=== PATIENT | female | born 1955 | race Caucasian/White ===

== ENCOUNTER 2017-09-28 09:57 | Day surgery (SDC) | payer OTHER ==
--- NOTE | 2017-09-28 08:59 | HP ---
DATE OF SURGERY: 09/28/2017 HISTORY OF PRESENT ILLNESS: The patient is a 61 year-old is not using her port. Trouble flushing at times and also some soreness, loose. As she is no longer using the port she desires removal this point. PAST MEDICAL HISTORY: Thyroid and lung nodules in the past. Prior history of breast cancer PAST SURGICAL HISTORY: Tonsillectomy, bilateral mastectomy. Foot surgery. MEDICATIONS: Victoza, hyoscyamine, Xanax, Spiriva. ALLERGIES: PENICILLIN, AVELOX, IMITREX, MORPHINE. FAMILY HISTORY: Cancer, hypertension, diabetes. SOCIAL HISTORY: No smoking. She reports social alcohol use denies abuse. REVIEW OF SYSTEMS: She is no longer using the port and desires removal. Twelve systems reviewed per admission assessment. No chest pain or palpitations other systems negative or noncontributory as above and per preadmission questionnaire. PHYSICAL EXAMINATION: GENERAL: No acute distress. HEENT: Sclerae nonicteric. NECK: No JVD. CHEST: Equal excursion, nonlabored breathing. Port site looks okay with no sign of infection. CVS: Regular rate and rhythm. ABDOMEN: Soft. EXTREMITIES: No significant edema. NEURO: Alert, moving extremities grossly symmetrically. IMPRESSION: Undesired port, has trouble flushing. She is no longer using. She desires removal. Risks and benefits explained in detail including but not limited to bleeding or infection, small risk of hematoma or seroma formation, small risk of port or catheter fracture or failure, possibility the catheter could be scarred in too bad to remove and may need to be tied off and the port itself just removed. She understands as well as general risk of anesthesia, deep venous thrombosis, pulmonary embolism, or pneumonia, risk of anesthesia or sedation but not limited to. We will proceed with removal of Port-A-Cath as an outpatient.
[~2017-09-28 09:57] MED LIST: Lactated Ringers 1,000 ML IV ONE; XYLOCAINE 1% HCL 20 ML MDV ONE
[2017-09-28] MEDS ORDERED: DIPRIVAN 200 MG/20 ML IV ONE (09:58)
[2017-09-28] MEDS ORDERED: Ketamine HCl 50 MG/ML IV ONE (09:58)
[2017-09-28] MEDS ORDERED: Lactated Ringers 1,000 ML IV ONE (10:10)
[2017-09-28] MEDS ORDERED: Lactated Ringers 1,000 ML IV SCH (10:30)
[2017-09-28] MEDS ORDERED: CLINDAMYCIN-D5W 600 MG/50 ML*** 600 MG/50 ML BAG IV SCH (12:00)
[2017-09-28 14:55] VITALS: BP 131/79; PULSE 83; O2SAT 98
--- NOTE | 2017-09-29 10:30 | OP ---
SURGERY DATE/TIME: 09/28/2017 1230 PREOPERATIVE DIAGNOSIS: Undesired Port-A-Cath. POSTOPERATIVE DIAGNOSIS: Undesired Port-A-Cath. PROCEDURE: Removal of tunnel Port-A-Cath. SURGEON: Dr. Arjun Rodriguez. ANESTHESIA: MAC, 1% lidocaine local. ESTIMATED BLOOD LOSS: Minimal. INDICATIONS: As noted above. Risks and benefits explained in detail and not limited to and consent obtained. DESCRIPTION OF PROCEDURE AND FINDINGS: The patient is taken to the operating room. MAC anesthesia introduced. After official time out and no disagreement with planned procedure, she is prepped and draped in usual sterile fashion. After official time out and no disagreement with the planned procedure, 1% lidocaine local infiltrated in field pattern around the old scar. The left chest dissection carried including excising pieces of scar. Dissection carried down to the port which was carefully freed. The Prolene sutures were freed and removed allowing the port to be mobilized upwards removed intact and passed off. Tunnel track closed with 3-0 Vicryl. Fibrous pocket closed with 3-0 Vicryl. Subcu closed with 3-0 Vicryl. Skin closed with 4-0 Vicryl. Steri-Strips and sterile dressing applied. The patient tolerated the procedure well. There were no immediate complications. There was no family available to discuss the findings with at this time.
== END 2017-09-28 14:10 | disposition home or self-care (01) ==
LOC: SDC 09:57
PROVIDERS: ATTEND Surgery
PROC: 0JPT0XZ Removal of Tunneled Vascular Access Device from Trunk Subcutaneous Tissue and Fascia, Open Approach (ICD-10-PCS; principal; 2017-09-28)
DX: Z45.2 Encounter for adjustment and management of vascular access device (principal); Z85.3 Personal history of malignant neoplasm of breast
CPT/HCPCS: 00400; J2704

== ENCOUNTER 2019-08-18 08:28 | Day surgery (SDC) | payer OTHER ==
--- NOTE | 2019-08-18 08:01 | HP ---
DATE OF SURGERY: 08/18/2019 ANTICIPATED PROCEDURES: 1) Colonoscopy. 2) Exploration right axilla. HISTORY OF PRESENT ILLNESS: The patient has right axillary mass. She is also requiring colonoscopy. She presents for both. PAST MEDICAL HISTORY: ALLERGIES: PENICILLIN. AVELOX. IMITREX. MORPHINE. MEDICATIONS: Meloxicam. Vicodin. Lexapro. PAST SURGICAL HISTORY: Mastectomy. Thyroid. Bladder tuck. SOCIAL HISTORY: Negative. FAMILY HISTORY: Negative. PHYSICAL EXAMINATION: VITAL SIGNS: Normal. CHEST: Clear. COR: Regular. IMPRESSION: Right axillary mass. The patient is requiring colonoscopy. PLAN: Colonoscopy and right axillary mass exploration.
[~2019-08-18 08:28] MED LIST changes: +Lactated Ringers 1,000 ML IV SCH; +Sensorcaine 0.25% 10 ML ONE; -XYLOCAINE 1% HCL 20 ML MDV ONE
[2019-08-18] MEDS ORDERED: CLINDAMYCIN-D5W 900 MG/50 ML*** 900 MG/50 ML BAG IV ONE (08:29)
[2019-08-18] MEDS ORDERED: Lactated Ringers 1,000 ML IV ONE (08:48)
[2019-08-18 09:13] VITALS: O2SAT 98
[2019-08-18] MEDS ORDERED: DIPRIVAN 200 MG/20 ML IV ONE (10:45)
[2019-08-18] MEDS ORDERED: Versed 2 MG/2 ML Injection ONE (10:45)
[2019-08-18] MEDS ORDERED: SUBLIMAZE 100 MCG/2 ML ONE ×2 (10:45→12:22)
[2019-08-18] MEDS ORDERED: DILAUDID 2 MG INJECTION ONE (11:05)
[2019-08-18 13:25] VITALS: BP 128/72; PULSE 61
--- NOTE | 2019-08-18 14:27 | OP ---
SURGERY DATE/TIME: 08/18/2019 1044 PREOPERATIVE DIAGNOSES: 1) The patient has right axillary possible lymphadenopathy. 2) She had a nuclear scan apparently had some activity in the colon. POSTOPERATIVE DIAGNOSES: 1) The patient has right axillary possible lymphadenopathy. 2) She had a nuclear scan apparently had some activity in the colon. PROCEDURES: 1) Biopsy of multiple deep right axillary lymph nodes. 2) Colonoscopy complete to cecum. SURGEON: Vasquez Crow M.D. ANESTHESIA: MAC. COMPLICATIONS: None. CONDITION: Stable. INDICATION: A patient requiring evaluation. DESCRIPTION OF PROCEDURE: Taken to surgery. Routine prep and drape. Curvilinear incision. Dissection down fairly deep axilla, pectoralis major right anteriorly, latissimus posteriorly. Axillary vein area the fascia was entered. There were at least three deep nodes seen large and slightly inflamed that were taken. Hemostasis obtained with electrocautery. Hemostasis satisfactory. Dorsal neurovascular bundle was intact and stimulated after removing the nodes. The field was dry. Closed with 3-0 and 4-0 Vicryl. Steri-Strips applied. Sterile dressing applied. Patient turned in left lateral decubitus position. Anal digital examination satisfactory. Scope advanced. Very redundant colon. With patience the scope was able to be advanced to the base of the cecum. Base of cecum satisfactory. The prep score was good, not excellent. There was residual light stool several places. Fairly lengthy redundant colon and also diameter-kennedy somewhat redundant. There was moderate almost severe diverticulosis of a fairly long sigmoid. No mucosal lesions were noted. The patient tolerated the procedure satisfactorily. PLAN: Five year follow up C-scope.
== END 2019-08-18 13:47 | disposition home or self-care (01) ==
LOC: SDC 08:28
PROVIDERS: ATTEND Surgery
DX: R59.1 Generalized enlarged lymph nodes (principal); K57.30 Diverticulosis of large intestine without perforation or abscess without bleeding; E11.9 Type 2 diabetes mellitus without complications; E03.9 Hypothyroidism, unspecified; F41.9 Anxiety disorder, unspecified; Z79.899 Other long term (current) drug therapy
CPT/HCPCS: 36415; 82962; 88307; J1170; J2250; J2704; J3010

== ENCOUNTER 2024-11-17 09:03 | Day surgery (SDC) | payer MEDICARE, OTHER ==
--- NOTE | 2024-11-16 13:00 | HP ---
HISTORY AND PHYSICAL HISTORY OF PRESENT ILLNESS: Patient is a 69-year-old female who presents with a colonoscopy 5 years ago. She had some polyps. Her brother had colon cancer. She has been having some heartburn, has been on some Tums. She has some lower abdominal pain and some diarrhea at times after eating. She does still have a gallbladder. She also has scant rectal bleeding at times. She has had a history of breast cancer. PAST MEDICAL HISTORY: Breast cancer, hypertension, thyroid, hyperlipidemia, asthma, arthritis, GERD, diabetes. HOME MEDICATIONS: Lisinopril, metoprolol, Synthroid, Jardiance, atorvastatin, gabapentin, tizanidine, albuterol, Spiriva. ALLERGIES: Avelox, Imitrex, morphine, and penicillin. PAST SURGICAL HISTORY: Cataracts, partial hysterectomy, mastectomy, thyroidectomy, carpal tunnel, ankle surgery, port placement, port removal. SOCIAL HISTORY: Former smoker. Occasional alcohol. FAMILY HISTORY: Breast cancer. REVIEW OF SYSTEMS: CONSTITUTIONAL: Denies fever or chills. CHEST: Denies shortness of breath. CARDIOVASCULAR: Denies chest pain. ABDOMEN: Reports epigastric pain and lower abdominal pain. PHYSICAL EXAMINATION: GENERAL: No acute distress. CARDIOVASCULAR: Regular rate and rhythm. RESPIRATORY: Nonlabored. No shortness of breath. ABDOMEN: Soft. IMPRESSION: Epigastric pain, nausea, history of polyps, family history of colon cancer, diarrhea, personal history of breast cancer. PLAN: EGD and colonoscopy with stool studies with Dr. Vasquez Crow. This report was dictated for Dr. Crow by Keiko Griggs NP.
[2024-11-17] MEDS ORDERED: Lactated Ringers 1,000 ML IV ONE (09:20)
[2024-11-17] MEDS: Lactated Ringers 1,000 ML IV SCH (09:23)
[2024-11-17] MEDS ORDERED: Versed 2 MG/2 ML Injection ONE (11:09)
[2024-11-17] MEDS ORDERED: propofoL IV ONE ×2 (11:09→11:17)
[2024-11-17 12:00] VITALS: RESP 16; O2SAT 100
[2024-11-17 12:08] VITALS: BP 115/99; PULSE 64; TEMP 97.8
[2024-11-17 15:29] LABS: 027 TOX PROD PRESUMPTIVE NEGATIVE (NEGATIVE); TOXIGENIC C. DIFF ORG NEGATIVE (NEGATIVE)
--- NOTE | 2024-11-18 10:23 | OP ---
SURGERY DATE/TIME: 11/17/2024 [id number] PREOPERATIVE DIAGNOSES: 1) Epigastric feeding reflux. 2) Five-year followup of polyps with a personal history of polyps and a family history of colon cancer, brother. POSTOPERATIVE DIAGNOSES: 1) Grade 2/4 gastroesophageal reflux disease. 2) Lower examination was normal to cecum. PROCEDURES: 1) Esophagogastroduodenoscopy. 2) Colonoscopic examination to cecum. SURGEON: Vasquez Crow MD ANESTHESIA: General. COMPLICATIONS: None. PREP SCORE: Excellent. WITHDRAWAL TIME: About 6 minutes. INDICATIONS: As above. DESCRIPTION OF PROCEDURE AND FINDINGS: Patient was taken to endoscopy, left lateral decubitus position. Scope introduced. Pharyngoesophageal junction normal. Esophagus normal down to EG junction. Grade 2/4 GERD. No hiatal hernia. Fundus, body, and antrum normal. Pylorus normal. Duodenal bulb normal. Second portion normal. Scope withdrawn, looped upon itself. No hiatal hernia. Scope was withdrawn. Anal digital examination satisfactory. Scope introduced. Scope advanced to the cecum. Appendiceal orifice normal. Ileocecal valve normal. Ascending, hepatic, transverse, splenic, descending, sigmoid, rectum, anus normal today. RECOMMENDATIONS: We will place her on 5-year followup C-scope and we will give her routine reflux instructions.
== END 2024-11-17 12:12 | disposition home or self-care (01) ==
LOC: SDC 09:03
PROVIDERS: ATTEND Surgery
DX: Z09 Encounter for follow-up examination after completed treatment for conditions other than malignant neoplasm (principal); Z86.0100 Personal history of colon polyps, unspecified; Z80.0 Family history of malignant neoplasm of digestive organs; Z85.3 Personal history of malignant neoplasm of breast; I10 Essential (primary) hypertension; E11.9 Type 2 diabetes mellitus without complications; R19.7 Diarrhea, unspecified; K21.9 Gastro-esophageal reflux disease without esophagitis
CPT/HCPCS: 82947; 87045; 87046; 87177; 87209; 87328; 87329; 87427; 87493; J2250; J2704